=== PATIENT | female | born 2000 | race Caucasian/White ===

== ENCOUNTER 2022-10-07 17:01 | Emergency (ER) | payer OTHER ==
[~2022-10-07] VITALS: Ht 167.6 cm; Wt 49.9 kg
--- NOTE | ~2022-10-07 | EKG ---
[facility] [address] [place], [place] [address] Draft EK completed, results pending confirmation PATIENT NAME: LORI FREEMAN Electrocardiogram DATE OF : 89 PHYSICIAN: PRELIMINARY REPORT #: [id number] REPORT IS CONFIDENTIAL AND NOT TO BE RELEASED WITHOUT AUTHORIZATION
[~2022-10-07 17:01] MED LIST: PROZAC40 MG PO; RISPERDAL1 MG PO
[2022-10-07] MEDS ORDERED: MIRALAX17 GM PO (22:53)
[2022-10-07 23:13] VITALS: BP 117/77
== END 2022-10-07 23:13 | disposition home or self-care (01) ==
LOC: ED 17:01
DX: E86.0 Dehydration (principal); K59.00 Constipation, unspecified; Z79.899 Other long term (current) drug therapy; Z20.822 Contact with and (suspected) exposure to COVID-19
CPT/HCPCS: 36415; 71045; 74177; 80053; 81001; 83605; 84703; 85025; 85610; 85730; 87502; 93005; 93010; A9270; C9803; J2270; J2405; Q9967; U0003

== ENCOUNTER 2023-02-19 21:53 | Emergency (ER) | payer OTHER ==
[~2023-02-19] VITALS: Ht 167.6 cm; Wt 42.6 kg
[~2023-02-19 21:53] MED LIST changes: +ENSURE HIGH PR237 ML PO; +MEGESTROL625 MG/5 M PO; +MIRALAX17 GM PO; +PRENATA CHEWAB1 EACH PO
[2023-02-19 23:18] LABS: BILIRUBIN, URINE NEGATIVE (negative); BLOOD/HGB, URINE NEGATIVE (Negative); KETONE, URINE NEGATIVE (Negative); LEUK ESTERASE, URINE NEGATIVE (negative); NITRITE, URINE NEGATIVE (negative)
[2023-02-19 23:19] LABS: BASOPHILS 0.6 % (0-2); EOSINOPHILS 0.3 % (0-6); HEMATOCRIT 43.3 % (35.0-50.0); HEMOGLOBIN 14.4 g/dL (12.0-18.0); LYMPHOCYTES 44.6 % (24-44); MCH 29.3 (27-36); MCHC 33.3 g/dl (30-36); MCV 87.9 fl (81-99); MONOCYTES 9.8 % (0-12); NEUTROPHILS 44.7 % (39-80); PLATELET COUNT 230 K/uL (140-440); RBC 4.92 M/ul (4.3-5.7); RDW 14.1 (10.5-15.0)
[2023-02-19 23:33] LABS: ALBUMIN 3.8 g/dL (3.4-5.0); ALBUMIN/GLOBULIN RATIO 0.9 (1.1-2.4); ANION GAP 16.7 (7-21); BILIRUBIN, TOTAL 0.5 ng/dL (0.2-1.0); BUN/CREATININE RATIO 25.92 (6.0-28.6); CALCIUM 9.3 mg/dL (8.5-10.1); CREATININE, SERUM 0.81 mg/dL (0.55-1.02); POTASSIUM 3.7 mmol/L (3.5-5.1)
[2023-02-20 01:01] VITALS: BP 117/81
== END 2023-02-20 01:07 | disposition home or self-care (01) ==
LOC: ED 21:53
PROVIDERS: Emergency Medicine
DX: R10.819 Abdominal tenderness, unspecified site (principal); Z79.899 Other long term (current) drug therapy
CPT/HCPCS: 36415; 74177; 80053; 81003; 83690; 84703; 85025; 96375; 99284-25; J1885; J2405; J7030

== ENCOUNTER 2023-04-05 21:47 | Emergency (ER) | payer OTHER ==
[~2023-04-05] VITALS: Ht 167.6 cm; Wt 54.4 kg
[~2023-04-05 21:47] MED LIST changes: +CARAFATE1 GM PO; +REGLAN5 MG PO
--- OUTSIDE RECORDS SUMMARY | 2023-04-05 21:56 | XMS ---
PreManage Notification: LORI FREEMAN Security Production Wood Craftsman Events No recent Security Events currently on file CRITERIA MET - [facility] - 2 Visits in 30 Days CARE PROVIDERS -Cristopher- Dentist: Corporate Development Officer Formerly [facility], [facility] PHONE: [phone] José has no Care Guidelines for this patient. EArturo VISIT COUNT (12 MO.) 5 [facility] TOTAL 5 NOTE: Visits indicate total known visits. ED/UCC VISIT TRACKING (12 MO.) 04/05/2023 21:48 [facility] [place] TYPE: Emergency COMPLAINT: - LOWER ABD PAIN 04/02/2023 23:18 [facility] [place] TYPE: Emergency COMPLAINT: - LOWER ABD PAIN DIAGNOSES: - Depression, unspecified - Epigastric pain - Other retirement (current) drug therapy 02/19/2023 21:54 [facility] [place] TYPE: Emergency COMPLAINT: - ABD PAIN DIAGNOSES: - Abdominal tenderness, unspecified site - Other retirement (current) drug therapy - Unspecified abdominal pain 01/14/2023 09:30 [facility] [place] TYPE: Emergency COMPLAINT: - DEHYDRATED, UNDERNOURISHED DIAGNOSES: - Body mass index [BMI] 19.9 or less, adult - Moderate protein-calorie malnutrition - Other continuous churn buttermaker (current) drug therapy - Weakness 10/07/2022 17:01 [facility] [place] TYPE: Emergency COMPLAINT: - ABDOMINAL PAIN DIAGNOSES: - Constipation, unspecified - Contact with and (suspected) exposure to COVID-19 - Dehydration - Other retirement (current) drug therapy - Unspecified abdominal pain INPATIENT VISIT TRACKING (12 MO.) No inpatient visits to display in this time frame [email or web address]
[2023-04-05 22:21] VITALS: BP 136/72
== END 2023-04-05 22:22 | disposition home or self-care (01) ==
LOC: ED 21:47
DX: R10.10 Upper abdominal pain, unspecified (principal); Z79.899 Other long term (current) drug therapy

== ENCOUNTER 2023-11-18 15:06 | Emergency (ER) | payer OTHER ==
[~2023-11-18] VITALS: Ht 167.6 cm; Wt 73.4 kg
[~2023-11-18 15:06] MED LIST changes: +CEPHALEXIN500 M1 PO; +HYDROCODON-ACE1 EA10 PO; +HYDROCORTISONE20 MG PO
--- OUTSIDE RECORDS SUMMARY | 2023-11-18 15:07 | XMS ---
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 E.D. VISIT COUNT (12 MO.) 7 [facility] Friasnce Thayer M.CIndira ([place]) TOTAL 8 NOTE: Visits indicate total known visits. ED/UCC VISIT TRACKING (12 MO.) 11/18/2023 15:07 [facility] [place] TYPE: Emergency COMPLAINT: - ADRENAL GLAND 10/20/2023 17:58 [facility] [place] TYPE: Emergency COMPLAINT: - ABNORMAL LAB RESULTS DIAGNOSES: - Other adrenocortical insufficiency - Right lower quadrant pain 10/07/2023 21:19 [facility] [place] TYPE: Emergency COMPLAINT: - TOOTH/JAW PAIN DIAGNOSES: - Body mass index [BMI] 27.0-27.9, adult - Depression, unspecified - Eating disorder, unspecified - terminal computer operator (current) use of other agents affecting estrogen receptors and estrogen levels - Other termite control technician (current) drug therapy - Other specified disorders of teeth and supporting structures 04/10/2023 22:13 [facility] Sonya HENDERSON ([place]) TYPE: Emergency DIAGNOSES: - Unspecified abdominal pain - abd pain insomnia - Abdominal Pain - Insomnia 04/05/2023 21:48 [facility] [place] TYPE: Emergency COMPLAINT: - LOWER ABD PAIN DIAGNOSES: - Other group home (current) drug therapy - Upper abdominal pain, unspecified 04/02/2023 23:18 [facility] [place] TYPE: Emergency COMPLAINT: - LOWER ABD PAIN DIAGNOSES: - Depression, unspecified - Epigastric pain - Other group home (current) drug therapy 02/19/2023 21:[address] [facility] [place] TYPE: Emergency COMPLAINT: - ABD PAIN DIAGNOSES: - Abdominal tenderness, unspecified site - Other group home (current) drug therapy - Unspecified abdominal pain 01/14/2023 09:30 [facility] [place] TYPE: Emergency COMPLAINT: - DEHYDRATED, UNDERNOURISHED DIAGNOSES: - Body mass index [BMI] 19.9 or less, adult - Moderate protein-calorie malnutrition - Other group home (current) drug therapy - Weakness INPATIENT VISIT TRACKING (12 MO.) No inpatient visits to display in this time frame [email or web address]
[2023-11-18] MEDS ORDERED: RISPERIDONE0.25 MG PO (15:23)
[2023-11-18] MEDS ORDERED: CARAFATE1 GM PO (17:52)
[2023-11-18] MEDS ORDERED: OMEPRAZOLE20 MG PO (17:52)
[2023-11-18 18:12] VITALS: BP 124/77
== END 2023-11-18 18:12 | disposition home or self-care (01) ==
LOC: ED 15:06
DX: R10.13 Epigastric pain (principal); E27.40 Unspecified adrenocortical insufficiency; Z79.899 Other long term (current) drug therapy
CPT/HCPCS: 99283

== ENCOUNTER 2024-06-05 09:45 | Emergency (ER) | payer OTHER ==
[~2024-06-05] VITALS: Ht 167.6 cm; Wt 70.3 kg
[~2024-06-05 09:45] MED LIST changes: +OMEPRAZOLE20 MG PO; +RISPERIDONE0.25 MG PO
[2024-06-05] MEDS ORDERED: HYDROCORTISONE10 MG PO (09:55)
[2024-06-05] MEDS ORDERED: ONDANSETRON ODT8 MG PO (09:55)
[2024-06-05] MEDS ORDERED: AMOXICILLIN/CLAVULANATE K 875 MG TAB PO ONE (10:45)
[2024-06-05] MEDS ORDERED: HYDROCODONE/ACETA 5/325 TAB PO ONE (10:45)
[2024-06-05] MEDS ORDERED: clindamycin HCL 300 MG CAP PO ONE (11:00)
[2024-06-05] MEDS ORDERED: HYDROCODON-ACE1 EA10 PO (11:33)
[2024-06-05] MEDS ORDERED: CLEOCIN HCL300 MG PO (11:33)
[2024-06-05 11:39] VITALS: BP 117/73
== END 2024-06-05 11:39 | disposition home or self-care (01) ==
LOC: ED 09:45
DX: K04.7 Periapical abscess without sinus (principal); Z79.899 Other long term (current) drug therapy
CPT/HCPCS: 99282

== ENCOUNTER 2024-08-20 18:08 | Emergency (ER) | payer OTHER ==
[~2024-08-20] VITALS: Ht 167.6 cm; Wt 64.2 kg
[~2024-08-20 18:08] MED LIST changes: +CLEOCIN HCL300 MG PO; +HYDROCORTISONE10 MG PO; +ONDANSETRON ODT8 MG PO
[2024-08-20 18:42] LABS: BASOPHILS 0.2 % (0-2); EOSINOPHILS 0.2 % (0-6); HEMATOCRIT 39.2 % (35.0-50.0); HEMOGLOBIN 13.1 g/dL (12.0-18.0); LYMPHOCYTES 11.4 % (24-44); MCH 26.9 (27-36); MCHC 33.5 g/dl (30-36); MCV 80.5 fl (81-99); MONOCYTES 5.1 % (0-12); NEUTROPHILS 83.1 % (39-80); PLATELET COUNT 207 K/uL (140-440); RBC 4.87 M/ul (4.3-5.7); RDW 15.8 (10.5-15.0)
[2024-08-20] MEDS ORDERED: KETOROLAC TROMETHAMINE 15 MG/ML VIAL IV ONE (18:45)
[2024-08-20] MEDS ORDERED: MORPHINE SULFATE 4 MG/ML VIAL IV ONE (18:45)
[2024-08-20 18:56] LABS: ALBUMIN 4.1 g/dL (3.4-5.0); ALBUMIN/GLOBULIN RATIO 1.17 (1.1-2.4); ANION GAP 16.9 (7-21); BILIRUBIN, TOTAL 0.9 mg/dL (0.2-1.0); BUN/CREATININE RATIO 16.47 (6.0-28.6); CALCIUM 8.8 mg/dL (8.5-10.1); CREATININE, SERUM 0.85 mg/dL (0.55-1.02); MAGNESIUM 1.8 mg/dL (1.8-2.4); POTASSIUM 2.9 mmol/L (3.5-5.1); PROTEIN, TOTAL 7.6 g/dL (6.4-8.2)
[2024-08-20] MEDS ORDERED: HYDROCORTISONE SOD SUCCINATE 100 MG/2 ML VIAL IV ONE (20:00)
[2024-08-20] MEDS ORDERED: SODIUM CHLORIDE 0.9% 500 ML IV PRN (20:00)
[2024-08-20] MEDS ORDERED: ACETAMINOPHEN 500 MG TAB PO ONE (20:30)
[2024-08-20 20:38] VITALS: BP 130/82
--- NOTE | 2024-08-21 13:46 | EKG ---
[facility] [address] [place] [address] Signed Sinus tachycardia Right bundle branch block T wave abnormality, consider inferolateral ischemia Abnormal ECG When compared with ECG of 14-JAN-2023 11:29, Vent. rate has increased BY 50 BPM Confirmed by Marcy Dacosta DO ([id number]) on 08/21/2024 1:45:54 PM Electronically Signed By: MARCY DACOSTA DO 08/21/24 1346 PATIENT NAME: LORI FREEMAN Electrocardiogram DATE OF : 89 PHYSICIAN: MARCY DACOSTA DO REPORT #: [id number] REPORT IS CONFIDENTIAL AND NOT TO BE RELEASED WITHOUT AUTHORIZATION
== END 2024-08-20 20:43 | disposition home or self-care (01) ==
LOC: ED 18:08
PROVIDERS: Emergency Medicine
DX: R07.9 Chest pain, unspecified (principal); E27.40 Unspecified adrenocortical insufficiency; R00.0 Tachycardia, unspecified; Z79.52 Long term (current) use of systemic steroids; Z79.899 Other long term (current) drug therapy
CPT/HCPCS: 36415; 71045; 80053; 83735; 84484; 85025; 85379; 93005; 93010; 96374; 96375; 99285-25; A9270; J1720; J1885; J2270; J7040

== ENCOUNTER 2024-12-24 15:24 | Emergency (ER) | payer OTHER ==
[~2024-12-24] VITALS: Ht 167.6 cm; Wt 59.1 kg
[2024-12-24] MEDS ORDERED: PROGESTERONE100 MG PO (15:41)
[2024-12-24] MEDS ORDERED: FLUOXETINE20 MG/5 ML PO (15:41)
[2024-12-24 16:01] LABS: BASOPHILS 0.6 % (0.1-1.2); EOSINOPHILS 0.1 % (0.7-5.8); LYMPHOCYTES 32.0 % (19.3-51.7); MCH 27.8 PG (25.6-32.2); MCHC 33.1 g/dL (32.2-35.5); MCV 83.9 fL (79.4-94.8); MONOCYTES 5.2 % (4.7-12.5); NEUTROPHILS 62.0 % (34.0-71.1); RBC 4.61 M/uL (3.93-5.22)
[2024-12-24 16:21] LABS: ALT (SGPT) 23.0 U/L (14-59); AST (SGOT) 29.0 U/L (15-37); GLOMERULAR FILTRATION RATE,EST 84.0 mL/min (>60); PROTEIN, TOTAL 7.3 g/dL (6.4-8.2); UREA NITROGEN 16.0 mg/dL (7-18)
[2024-12-24] MEDS ORDERED: TRANEXAMIC ACI650 MG PO (16:57)
[2024-12-24 17:10] VITALS: BP 97/78
== END 2024-12-24 17:06 | disposition home or self-care (01) ==
LOC: ED 15:24
PROVIDERS: Emergency Medicine
DX: N92.0 Excessive and frequent menstruation with regular cycle (principal); Z79.899 Other long term (current) drug therapy
CPT/HCPCS: 36415; 80053; 84703; 85025; 99284

== ENCOUNTER 2025-05-16 17:44 | Emergency (ER) | payer OTHER ==
[~2025-05-16] VITALS: Ht 167.6 cm; Wt 55.7 kg
[~2025-05-16 17:44] MED LIST changes: +FLUOXETINE20 MG/5 ML PO; +PROGESTERONE100 MG PO; +TRANEXAMIC ACI650 MG PO
[2025-05-16] MEDS ORDERED: METRONIDAZOLE500 MG PO (18:06)
[2025-05-16 20:09] VITALS: BP 97/62
== END 2025-05-16 20:09 | disposition left against medical advice (07) ==
LOC: ED 17:44
DX: Z53.21 Procedure and treatment not carried out due to patient leaving prior to being seen by health care provider (principal)